=== PATIENT | female | born 1955 | race Asian ===

== ENCOUNTER 2023-06-14 03:31 | Inpatient (IN) | payer MEDICAID, OTHER ==
[~2023-06-14] VITALS: Ht 170.2 cm; Wt 83.5 kg
[2023-06-14] MEDS ORDERED: hydrALAZINE HCL 20 MG/ML VL IV ONE ×2 (04:00→05:30)
[2023-06-14 04:22] LABS: Basophils # (auto) 0 10 ^3/uL (0-0.2); Eosinophils # (auto) 0.2 10 ^3/uL (0-0.8); Eosinophils % (auto) 2.3 % (0.0-7.0); Hematocrit 22.5 % (36.0-46.0); Monocytes # (auto) 0.3 10 ^3/uL (0-1.3); Monocytes % (auto) 4.5 % (0.0-12.0); Red Blood Cells 2.55 10^6/uL (4.0-5.20)
[2023-06-14 04:23] LABS: Basophils % (auto) 0.4 % (0.0-2.0); Hemoglobin 7.2 g/dL (12.2-16.2); Lymphocytes % (auto) 12.5 % (10.0-50.0); Mean Corpuscular Hemoglobin 28.3 pg (28.0-32.0); Mean Corpuscular Hgb Conc. 32.1 g/dL (32.0-36.0); Mean Corpuscular Volume 88.3 fL (80.0-100.0); Neutrophils # (auto) 6.2 10 ^3/uL (1.6-8.6); Neutrophils % (auto) 80.3 % (37.0-80.0); Red Cell Distribution Width 17.5 % (11.8-14.3); White Blood Cell 7.7 10^3/uL (4.4-10.8)
[2023-06-14 04:30] VITALS: PULSE 86; RESP 15; O2SAT 97
[2023-06-14 04:31] LABS: INR 0.93 (0.9-1.15); Partial Thromboplastin Time 26.1 SEC (24.5-34.5); Prothrombin Time 9.8 sec (9.3-11.8)
[2023-06-14 04:34] LABS: Alanine Aminotransferase 20 U/L (7-40); Alkaline Phosphatase 124 U/L (46-116); Anion Gap 7 (5-15); Aspartate Aminotransferase 28 U/L (13-40); BUN/Creatinine Ratio 8.6 (10.0-20.0); Blood Urea Nitrogen 30 mg/dL (9-23); Calcium 8.3 mg/dL (8.7-10.4); Carbon Dioxide 17 mmol/L (20-30); Chloride 108 mmol/L (98-107); Glucose 368 mg/dL (74-106); Magnesium 2.2 mg/dL (1.6-2.6); Potassium 4.3 mmol/L (3.5-5.1); Sodium 132 mmol/L (136-145)
[2023-06-14 04:35] LABS: Albumin 3.1 g/dL (3.2-4.8); Bilirubin, Total 0.3 mg/dL (0.2-1.0)
[2023-06-14] MEDS ORDERED: LABETALOL HCL 5 MG/ML 4ML SYRINGE IV ONE (06:15)
[2023-06-14] MEDS ORDERED: LACTATED RINGER'S 2,000 ML IV ONE (06:15)
[2023-06-14] MEDS ORDERED: InsuLIN REG 1unit/0.01ml Soln (100units/ml) IV ONE (06:15)
[2023-06-14] MEDS ORDERED: ASPirin 325 MG TAB PO ONE (06:15)
[2023-06-14] MEDS ORDERED: SODIUM BICARBONATE 8.4 % INJ 50ML VIAL IV ONE (06:15)
[2023-06-14] MEDS ORDERED: MORPHINE SULFATE INJ 2 MG/ml SYRG IV PRN (06:45)
[2023-06-14] MEDS ORDERED: ONDANSETRON HCL 4 MG/2 ML VIAL IV PRN (06:45)
[2023-06-14] MEDS ORDERED: DEXTROSE (50%) 50ML SYRG IV PRN (06:45)
[2023-06-14] MEDS ORDERED: NITROGLYCERIN 0.4 MG SL TAB SL PRN (06:45)
[2023-06-14 07:40] VITALS: PULSE 76; RESP 15; O2SAT 99
[2023-06-14 08:18] LABS: Urine Bacteria MANY /hpf (None Seen); Urine Blood TRACE /uL (Negative); Urine Clarity HAZY (Clear); Urine Color Colorless (Yellow); Urine Hyaline Cast MANY /lpf (0 - 2); Urine Protein, UAD 3+ (Negative); Urine Specific Gravity 1.013 (1.001-1.035); Urine Urobilinogen Normal (Negative); Urine WBC 100 /hpf (0 - 5)
[2023-06-14] MEDS ORDERED: amLODIPine BESYLATE 5 MG TAB PO SCH (10:00)
[2023-06-14] MEDS ORDERED: METOPROLOL TARTRATE 50 MG TAB PO SCH (10:00)
[2023-06-14 10:31] LABS: Triglycerides 218 mg/dL (< 150)
[2023-06-14 10:32] LABS: LDL Cholesterol 116 mg/dL (< 100)
[2023-06-14 10:33] LABS: HDL Cholesterol 36 mg/dL (40-59)
[2023-06-14 10:34] LABS: Cholesterol 199 mg/dL (< 200)
[2023-06-14] MEDS: cloNIDine HCL 0.1 MG TAB PO SCH ×2 (11:15→23:03)
[2023-06-14] MEDS: NIFEdipine ER 30 MG TAB PO SCH (11:16)
[2023-06-14] MEDS: SODIUM BICARBONATE 50ML VIAL 50 ML in SOD CHL 0.45% 1,000 ML IV SCH (11:25)
[2023-06-14] MEDS: CARVEDILOL 12.5 MG TAB PO SCH ×2 (11:25→23:04)
[2023-06-14 11:55] LABS: Creatinine, Urine 42.24 mg/dL (30.0-125.0)
[2023-06-14 11:59] LABS: Urine Protein/Creatinine Ratio 15.96
[2023-06-14] MEDS ORDERED: SODIUM BICARBONATE 650 MG TAB PO SCH (12:00)
[2023-06-14] MEDS: ACCU-CHEK COMFORT CURVE STRIP VI SCH ×2 (12:28→17:49)
[2023-06-14] MEDS: InsuLIN REG 1unit/0.01ml Soln (100units/ml) SC SCH ×3 (12:34→23:34)
[2023-06-14] MEDS ORDERED: cefTRIAXone 1GM/50ML D5W 50 ML IV ONE (13:00)
[2023-06-14] MEDS: hydrALAZINE HCL 25 MG TAB PO SCH ×2 (14:08→23:05)
[2023-06-14] MEDS: LABETALOL HCL 5 MG/ML 4ML SYRINGE IV PRN (16:36)
[2023-06-14 19:25] VITALS: PULSE 93; RESP 18; O2SAT 96
[2023-06-14] MEDS: ACETAMINOPHEN 325 MG TAB PO PRN ×2 (20:32→23:05)
[2023-06-14] MEDS ORDERED: ATORVASTATIN 20 MG TAB PO SCH (22:00)
[2023-06-14 22:52] LABS: Hematocrit 18.3 % (36.0-46.0)
[2023-06-14] MEDS: ATORVASTATIN 20 MG TAB PO SCH (23:04)
[2023-06-14 23:11] LABS: Hemoglobin 5.9 g/dL (12.2-16.2)
[2023-06-15] VITALS (16 sets, daily range): BP systolic 125–194; BP diastolic 47–93; PULSE 66–91; RESP 16–19; TEMP 97.5–98.6; O2SAT 96–98
[2023-06-15] MEDS: ACCU-CHEK COMFORT CURVE STRIP VI SCH ×4 (01:29→18:00)
[2023-06-15] MEDS: SODIUM BICARBONATE 50ML VIAL 50 ML in SOD CHL 0.45% 1,000 ML IV SCH (01:30)
[2023-06-15 05:10] LABS: Basophils # (auto) 0 10 ^3/uL (0-0.2); Basophils % (auto) 0.4 % (0.0-2.0); Eosinophils # (auto) 0.2 10 ^3/uL (0-0.8); Hematocrit 17.2 % (36.0-46.0); Lymphocytes # (auto) 1.4 10 ^3/uL (0.4-5.4); Monocytes # (auto) 0.4 10 ^3/uL (0-1.3); Neutrophils # (auto) 3.3 10 ^3/uL (1.6-8.6)
[2023-06-15 05:11] LABS: Eosinophils % (auto) 3.5 % (0.0-7.0); Lymphocytes % (auto) 27.1 % (10.0-50.0); Mean Corpuscular Hemoglobin 28.7 pg (28.0-32.0); Mean Corpuscular Hgb Conc. 32.7 g/dL (32.0-36.0); Mean Corpuscular Volume 87.8 fL (80.0-100.0); Monocytes % (auto) 6.8 % (0.0-12.0); Neutrophils % (auto) 62.2 % (37.0-80.0); Red Blood Cells 1.95 10^6/uL (4.0-5.20); Red Cell Distribution Width 17.4 % (11.8-14.3); White Blood Cell 5.2 10^3/uL (4.4-10.8)
[2023-06-15 05:22] LABS: Alanine Aminotransferase 15 U/L (7-40); Albumin 2.3 g/dL (3.2-4.8); Alkaline Phosphatase 86 U/L (46-116); Anion Gap 6 (5-15); Aspartate Aminotransferase 17 U/L (13-40); BUN/Creatinine Ratio 8.4 (10.0-20.0); Blood Urea Nitrogen 31 mg/dL (9-23); Calcium 7.3 mg/dL (8.7-10.4); Carbon Dioxide 21 mmol/L (20-30); Chloride 110 mmol/L (98-107); Glucose 197 mg/dL (74-106); Potassium 3.6 mmol/L (3.5-5.1); Sodium 137 mmol/L (136-145)
[2023-06-15 05:23] LABS: Bilirubin, Total 0.2 mg/dL (0.2-1.0); Total Protein 4.5 g/dL (5.7-8.2)
[2023-06-15] MEDS: hydrALAZINE HCL 25 MG TAB PO SCH ×3 (05:25→21:22)
[2023-06-15 05:33] LABS: Hemoglobin 5.6 g/dL (12.2-16.2)
[2023-06-15] MEDS: InsuLIN REG 1unit/0.01ml Soln (100units/ml) SC SCH ×3 (05:33→18:45)
[2023-06-15] MEDS ORDERED: cefTRIAXone 1GM/50ML D5W 50 ML IV SCH (09:00)
[2023-06-15] MEDS: cloNIDine HCL 0.1 MG TAB PO SCH ×2 (10:00→21:22)
[2023-06-15] MEDS ORDERED: ASPirin 81 mg TAB PO SCH (10:00)
[2023-06-15] MEDS: CARVEDILOL 12.5 MG TAB PO SCH (10:00)
[2023-06-15] MEDS: NIFEdipine ER 30 MG TAB PO SCH (10:00)
[2023-06-15] MEDS ORDERED: FUROSEMIDE 40 MG/4 ML VIAL IV ONE (11:15)
[2023-06-15] MEDS: FUROSEMIDE 40 MG/4 ML VIAL IV SCH (18:41)
[2023-06-15] MEDS: ATORVASTATIN 20 MG TAB PO SCH (21:19)
[2023-06-15] MEDS ORDERED: CARVEDILOL 12.5 MG TAB PO SCH (22:00)
[2023-06-16] VITALS (8 sets, daily range): BP systolic 160–202; BP diastolic 76–91; PULSE 69–84; RESP 14–18; TEMP 97.7–98.5; O2SAT 96–99
[2023-06-16] MEDS: InsuLIN REG 1unit/0.01ml Soln (100units/ml) SC SCH ×4 (00:20→18:37)
[2023-06-16] MEDS: ACCU-CHEK COMFORT CURVE STRIP VI SCH ×4 (00:22→18:37)
[2023-06-16] MEDS: LABETALOL HCL 5 MG/ML 4ML SYRINGE IV PRN ×2 (00:36→12:28)
[2023-06-16] MEDS: hydrALAZINE HCL 25 MG TAB PO SCH ×3 (05:27→21:23)
[2023-06-16] MEDS: FUROSEMIDE 40 MG/4 ML VIAL IV SCH ×2 (05:27→18:34)
[2023-06-16 07:07] LABS: Immunoglobulin A 139 mg/dL (87-352); Immunoglobulin G, Serum 1057 mg/dL (586-1602); Immunoglobulin M 143 mg/dL (26-217)
[2023-06-16 07:59] LABS: Basophils # (auto) 0 10 ^3/uL (0-0.2); Basophils % (auto) 0.5 % (0.0-2.0); Eosinophils # (auto) 0.3 10 ^3/uL (0-0.8); Eosinophils % (auto) 5.1 % (0.0-7.0); Hematocrit 28.5 % (36.0-46.0); Hemoglobin 9.3 g/dL (12.2-16.2); Lymphocytes % (auto) 17.1 % (10.0-50.0); Mean Corpuscular Hemoglobin 27.9 pg (28.0-32.0); Mean Corpuscular Hgb Conc. 32.7 g/dL (32.0-36.0); Mean Corpuscular Volume 85.5 fL (80.0-100.0); Monocytes # (auto) 0.5 10 ^3/uL (0-1.3); Monocytes % (auto) 8.4 % (0.0-12.0); Neutrophils # (auto) 4.1 10 ^3/uL (1.6-8.6); Neutrophils % (auto) 68.9 % (37.0-80.0); Red Blood Cells 3.34 10^6/uL (4.0-5.20); Red Cell Distribution Width 16.2 % (11.8-14.3); White Blood Cell 5.9 10^3/uL (4.4-10.8)
[2023-06-16 08:19] LABS: Alanine Aminotransferase 16 U/L (7-40); Albumin 2.7 g/dL (3.2-4.8); Alkaline Phosphatase 90 U/L (46-116); Anion Gap 7 (5-15); Aspartate Aminotransferase 22 U/L (13-40); BUN/Creatinine Ratio 8.9 (10.0-20.0); Bilirubin, Total 0.5 mg/dL (0.2-1.0); Blood Urea Nitrogen 31 mg/dL (9-23); Calcium 7.9 mg/dL (8.5-10.1); Carbon Dioxide 24 mmol/L (20-30); Chloride 107 mmol/L (98-107); Glucose 149 mg/dL (74-106); Potassium 3.4 mmol/L (3.5-5.1); Sodium 138 mmol/L (136-145); Total Protein 5.2 g/dL (5.7-8.2)
[2023-06-16] MEDS: cloNIDine HCL 0.1 MG TAB PO SCH ×2 (11:14→21:23)
[2023-06-16] MEDS: FLUCONAZOLE 100 MG TAB PO SCH (11:15)
[2023-06-16] MEDS: CARVEDILOL 12.5 MG TAB PO SCH ×2 (11:15→21:22)
[2023-06-16] MEDS: AMPICILLIN INJ 1 GM in SODIUM CHL 0.9% 100 ML IV SCH ×2 (13:40→18:34)
[2023-06-16] MEDS: ATORVASTATIN 20 MG TAB PO SCH (21:21)
[2023-06-17] MEDS: InsuLIN REG 1unit/0.01ml Soln (100units/ml) SC SCH ×3 (00:07→12:01)
[2023-06-17] MEDS: LABETALOL HCL 5 MG/ML 4ML SYRINGE IV PRN (00:08)
[2023-06-17] MEDS: AMPICILLIN INJ 1 GM in SODIUM CHL 0.9% 100 ML IV SCH ×3 (00:08→11:54)
[2023-06-17] MEDS: ACCU-CHEK COMFORT CURVE STRIP VI SCH ×3 (00:10→11:18)
[2023-06-17 05:00] VITALS: BP 172/70; PULSE 67; RESP 17; TEMP 98; O2SAT 98
[2023-06-17] MEDS: hydrALAZINE HCL 25 MG TAB PO SCH ×2 (05:17→14:00)
[2023-06-17] MEDS: FUROSEMIDE 40 MG/4 ML VIAL IV SCH (05:18)
[2023-06-17 06:55] LABS: Anion Gap 8 (5-15); Carbon Dioxide 24 mmol/L (20-30); Chloride 106 mmol/L (98-107); Potassium 3.3 mmol/L (3.5-5.1); Sodium 138 mmol/L (136-145)
[2023-06-17 06:56] LABS: Calcium 8.2 mg/dL (8.5-10.1)
[2023-06-17 07:00] LABS: Glucose 141 mg/dL (74-106)
[2023-06-17 07:01] LABS: BUN/Creatinine Ratio 8.2 (10.0-20.0); Blood Urea Nitrogen 30 mg/dL (9-23)
[2023-06-17 07:14] LABS: Basophils # (auto) 0 10 ^3/uL (0-0.2); Basophils % (auto) 0.6 % (0.0-2.0); Eosinophils # (auto) 0.4 10 ^3/uL (0-0.8); Eosinophils % (auto) 6.3 % (0.0-7.0); Hematocrit 29.1 % (36.0-46.0); Hemoglobin 9.5 g/dL (12.2-16.2); Lymphocytes # (auto) 1.2 10 ^3/uL (0.4-5.4); Lymphocytes % (auto) 20.5 % (10.0-50.0); Mean Corpuscular Hemoglobin 28.9 pg (28.0-32.0); Mean Corpuscular Hgb Conc. 32.7 g/dL (32.0-36.0); Mean Corpuscular Volume 88.3 fL (80.0-100.0); Monocytes # (auto) 0.5 10 ^3/uL (0-1.3); Monocytes % (auto) 9.1 % (0.0-12.0); Neutrophils # (auto) 3.7 10 ^3/uL (1.6-8.6); Neutrophils % (auto) 63.5 % (37.0-80.0); Nucleated Red Blood Cells % 0.2 %; Red Cell Distribution Width 16.1 % (11.8-14.3); White Blood Cell 5.8 10^3/uL (4.4-10.8)
[2023-06-17 08:00] VITALS: BP 209/92; PULSE 63; PULSE 67; PULSE 78; RESP 16; RESP 18; TEMP 97.8; O2SAT 98; O2SAT 99
[2023-06-17] MEDS ORDERED: POTASSIUM EFFERVESENT TAB 25 MEQ PO ONE ×2 (08:45→10:00)
[2023-06-17] MEDS: FLUCONAZOLE 100 MG TAB PO SCH (09:09)
[2023-06-17] MEDS: cloNIDine HCL 0.1 MG TAB PO SCH (09:09)
[2023-06-17] MEDS: CARVEDILOL 12.5 MG TAB PO SCH (09:11)
[2023-06-17] MEDS ORDERED: NIFEdipine ER 30 MG TAB PO SCH (10:00)
[2023-06-17] MEDS ORDERED: FUROSEMIDE 40 MG TAB PO SCH (10:00)
[2023-06-17 12:00] VITALS: PULSE 69; RESP 18; TEMP 97.9; O2SAT 97
[2023-06-17] MEDS ORDERED: FLUC150T38 PO (12:14)
[2023-06-17] MEDS ORDERED: AMPI500C9 PO (12:14)
== END 2023-06-17 14:40 | disposition home or self-care (01) | DRG 199 ==
LOC: EDBD 03:31 → ER 03:31 → TELE 06:42 → TELE-EAST 22:20
PROVIDERS: ADMIT Nurse Practitioner; ATTEND Family Medicine
PROC: 30233N1 Transfusion of Nonautologous Red Blood Cells into Peripheral Vein, Percutaneous Approach (ICD-10-PCS; principal; 2023-06-15)
PROC: 05HC33Z Insertion of Infusion Device into Left Basilic Vein, Percutaneous Approach (ICD-10-PCS; 2023-06-15)
PROC: B54NZZA Ultrasonography of Left Upper Extremity Veins, Guidance (ICD-10-PCS; 2023-06-15)
DX: I16.0 Hypertensive urgency (principal); N17.0 Acute kidney failure with tubular necrosis; I21.A1 Myocardial infarction type 2; I50.33 Acute on chronic diastolic (congestive) heart failure; D63.1 Anemia in chronic kidney disease; E87.20 Acidosis, unspecified; E11.65 Type 2 diabetes mellitus with hyperglycemia; E86.0 Dehydration; E66.9 Obesity, unspecified; E78.5 Hyperlipidemia, unspecified; N18.4 Chronic kidney disease, stage 4 (severe); N39.0 Urinary tract infection, site not specified; B95.1 Streptococcus, group B, as the cause of diseases classified elsewhere; I13.0 Hypertensive heart and chronic kidney disease with heart failure and stage 1 through stage 4 chronic kidney disease, or unspecified chronic kidney disease; E11.22 Type 2 diabetes mellitus with diabetic chronic kidney disease; Z86.73 Personal history of transient ischemic attack (TIA), and cerebral infarction without residual deficits; Z86.74 Personal history of sudden cardiac arrest; Z85.43 Personal history of malignant neoplasm of ovary; Z85.3 Personal history of malignant neoplasm of breast; Z68.28 Body mass index [BMI] 28.0-28.9, adult; Z79.4 Long term (current) use of insulin
CPT/HCPCS: 36415; 70450; 71045; 76775; 80048; 80053; 80061; 81001; 82010; 82306; 82570; 82784; 82962; 83010; 83036; 83735; 83880; 83970; 84100; 84156; 84300; 84443; 84484; 85014; 85018; 85025; 85045; 85610; 85730; 86334; 86850; 86900; 86901; 86920; 87040; 87086; 87340; 93005; 93306; 96374; 96375; 99291; G0378; J0696; J1815; J3490

== ENCOUNTER 2023-07-27 23:00 | Inpatient (IN) | payer MEDICAID, OTHER ==
[~2023-07-27] VITALS: Ht 170.2 cm; Wt 83.2 kg
[~2023-07-27 23:00] MED LIST: AMPI500C9 PO; FLUC150T38 PO
[2023-07-27] MEDS ORDERED: amLODIPine BESYLATE 5 MG TAB PO ONE (23:30)
[2023-07-27] MEDS ORDERED: cloNIDine HCL 0.1 MG TAB PO ONE (23:30)
[2023-07-27 23:38] VITALS: PULSE 97; RESP 15; O2SAT 97
[2023-07-28 00:14] LABS: Basophils # (auto) 0.1 10 ^3/uL (0-0.2); Basophils % (auto) 0.8 % (0.0-2.0); Eosinophils # (auto) 0.2 10 ^3/uL (0-0.8); Eosinophils % (auto) 2.8 % (0.0-7.0); Hematocrit 29.6 % (36.0-46.0); Hemoglobin 9.6 g/dL (12.2-16.2); Lymphocytes # (auto) 0.8 10 ^3/uL (0.4-5.4); Lymphocytes % (auto) 11.3 % (10.0-50.0); Mean Corpuscular Hemoglobin 28.9 pg (28.0-32.0); Mean Corpuscular Hgb Conc. 32.4 g/dL (32.0-36.0); Mean Corpuscular Volume 89.3 fL (80.0-100.0); Monocytes # (auto) 0.5 10 ^3/uL (0-1.3); Monocytes % (auto) 6.3 % (0.0-12.0); Neutrophils # (auto) 5.8 10 ^3/uL (1.6-8.6); Neutrophils % (auto) 78.8 % (37.0-80.0); Red Blood Cells 3.31 10^6/uL (4.0-5.20); Red Cell Distribution Width 17.4 % (11.8-14.3); White Blood Cell 7.4 10^3/uL (4.4-10.8)
[2023-07-28 00:33] LABS: Albumin 2.9 g/dL (3.2-4.8); Alkaline Phosphatase 108 U/L (46-116); Anion Gap 7 (5-15); Aspartate Aminotransferase 22 U/L (13-40); Bilirubin, Total 0.3 mg/dL (0.2-1.0); Blood Urea Nitrogen 25 mg/dL (9-23); Carbon Dioxide 18 mmol/L (20-30); Chloride 110 mmol/L (98-107); Glucose 161 mg/dL (74-106); Potassium 4.1 mmol/L (3.5-5.1); Sodium 135 mmol/L (136-145)
[2023-07-28 00:34] LABS: Total Protein 5.9 g/dL (5.7-8.2)
[2023-07-28 00:36] LABS: Alanine Aminotransferase < 9 U/L (7-40)
[2023-07-28] MEDS ORDERED: hydrALAZINE HCL 20 MG/ML VL IV ONE (01:30)
[2023-07-28] MEDS ORDERED: FUROSEMIDE 40 MG/4 ML VIAL IV ONE (03:30)
[2023-07-28 04:50] LABS: Urine Amorphous Crystal FEW /hpf (None Seen); Urine Bacteria FEW /hpf (None Seen); Urine Blood Negative /uL (Negative); Urine Clarity HAZY (Clear); Urine Color Colorless (Yellow); Urine Hyaline Cast FEW /lpf (0 - 2); Urine Protein, UAD 3+ (Negative); Urine Specific Gravity 1.012 (1.001-1.035); Urine Urobilinogen Normal (Negative); Urine WBC 21 /hpf (0 - 5)
[2023-07-28] MEDS ORDERED: NITROGLYCERIN 50MG/250ML 250 ML IV ONE (05:30)
[2023-07-28] MEDS ORDERED: MORPHINE SULFATE INJ 2 MG/ml SYRG IV PRN (05:45)
[2023-07-28] MEDS ORDERED: DEXTROSE (50%) 50ML SYRG IV PRN (05:45)
[2023-07-28] MEDS ORDERED: ACETAMINOPHEN 325 MG TAB PO PRN (05:45)
[2023-07-28] MEDS ORDERED: ONDANSETRON HCL 4 MG/2 ML VIAL IV PRN (05:45)
[2023-07-28] MEDS ORDERED: NITROGLYCERIN 0.4 MG SL TAB SL PRN (05:45)
[2023-07-28] MEDS: ACCU-CHEK COMFORT CURVE STRIP VI SCH ×4 (06:36→23:58)
[2023-07-28] MEDS: hydrALAZINE HCL 25 MG TAB PO SCH ×3 (06:36→21:55)
[2023-07-28] MEDS: InsuLIN REG 1unit/0.01ml Soln (100units/ml) SC SCH ×4 (06:41→23:58)
[2023-07-28 07:30] VITALS: PULSE 78; RESP 17; O2SAT 97
[2023-07-28] MEDS ORDERED: FUROSEMIDE 20 MG/2 ML VIAL IV ONE (08:00)
[2023-07-28 08:52] LABS: Anion Gap 12 (5-15); Calcium 8.3 mg/dL (8.5-10.1); Carbon Dioxide 17 mmol/L (20-30); Chloride 111 mmol/L (98-107); Potassium 4.1 mmol/L (3.5-5.1); Sodium 140 mmol/L (136-145)
[2023-07-28 08:58] LABS: BUN/Creatinine Ratio 8.8 (10.0-20.0); Glucose 147 mg/dL (74-106)
[2023-07-28 09:00] LABS: Blood Urea Nitrogen 36 mg/dL (9-23)
[2023-07-28] MEDS: NIFEdipine ER 30 MG TAB PO SCH (09:47)
[2023-07-28] MEDS: cloNIDine HCL 0.1 MG TAB PO SCH ×2 (09:48→21:55)
[2023-07-28] MEDS: AZITHROMYCIN 500MG/ 250ML 250 ML IV SCH (09:49)
[2023-07-28] MEDS: CARVEDILOL 12.5 MG TAB PO SCH ×2 (09:49→21:55)
[2023-07-28] MEDS ORDERED: ASPirin 81 mg TAB PO SCH (10:00)
[2023-07-28] MEDS ORDERED: cefTRIAXone 1GM/50ML D5W 50 ML IV ONE (13:45)
[2023-07-28] MEDS ORDERED: NITROGLYCERIN 50MG/250ML 250 ML IV SCH (16:30)
[2023-07-28] MEDS: NITROGLYCERIN 50MG/250ML 250 ML IV SCH (16:45)
[2023-07-28] MEDS: FUROSEMIDE 20 MG/2 ML VIAL IV SCH (17:06)
[2023-07-28 19:25] VITALS: PULSE 76; RESP 20; O2SAT 94
[2023-07-28] MEDS: SODIUM BICARBONATE 650 MG TAB PO SCH (21:55)
[2023-07-28] MEDS: ATORVASTATIN 20 MG TAB PO SCH (21:55)
[2023-07-29 05:34] LABS: Basophils # (auto) 0 10 ^3/uL (0-0.2); Eosinophils # (auto) 0.2 10 ^3/uL (0-0.8); Hemoglobin 7.5 g/dL (12.2-16.2); Monocytes # (auto) 0.4 10 ^3/uL (0-1.3); Nucleated Red Blood Cells % 0.1 %; White Blood Cell 4.6 10^3/uL (4.4-10.8)
[2023-07-29 05:38] LABS: Basophils % (auto) 0.4 % (0.0-2.0); Eosinophils % (auto) 4.2 % (0.0-7.0); Hematocrit 22.4 % (36.0-46.0); Lymphocytes % (auto) 20.9 % (10.0-50.0); Mean Corpuscular Hemoglobin 28.9 pg (28.0-32.0); Mean Corpuscular Hgb Conc. 33.5 g/dL (32.0-36.0); Monocytes % (auto) 7.9 % (0.0-12.0); Neutrophils % (auto) 66.6 % (37.0-80.0); Red Cell Distribution Width 16.9 % (11.8-14.3)
[2023-07-29 05:51] LABS: Albumin 2.4 g/dL (3.2-4.8); Alkaline Phosphatase 88 U/L (46-116); Anion Gap 7 (5-15); Aspartate Aminotransferase 17 U/L (13-40); BUN/Creatinine Ratio 7.9 (10.0-20.0); Blood Urea Nitrogen 38 mg/dL (9-23); Calcium 7.6 mg/dL (8.7-10.4); Carbon Dioxide 22 mmol/L (20-30); Chloride 109 mmol/L (98-107); Glucose 138 mg/dL (74-106); Magnesium 2.2 mg/dL (1.6-2.6); Potassium 3.9 mmol/L (3.5-5.1); Sodium 138 mmol/L (136-145)
[2023-07-29 05:52] LABS: Bilirubin, Total 0.3 mg/dL (0.2-1.0); Phosphorus 5.2 mg/dL (2.4-5.1); Total Protein 4.8 g/dL (5.7-8.2)
[2023-07-29] MEDS: InsuLIN REG 1unit/0.01ml Soln (100units/ml) SC SCH ×3 (06:00→18:00)
[2023-07-29 06:12] LABS: Alanine Aminotransferase < 9 U/L (7-40)
[2023-07-29] MEDS: ACCU-CHEK COMFORT CURVE STRIP VI SCH ×3 (06:14→18:31)
[2023-07-29] MEDS: FUROSEMIDE 20 MG/2 ML VIAL IV SCH ×2 (06:17→18:32)
[2023-07-29] MEDS: hydrALAZINE HCL 25 MG TAB PO SCH ×3 (06:18→21:52)
[2023-07-29] MEDS: SODIUM BICARBONATE 650 MG TAB PO SCH ×3 (06:18→21:50)
[2023-07-29] MEDS: NITROGLYCERIN 50MG/250ML 250 ML IV SCH (07:33)
[2023-07-29 08:00] VITALS: PULSE 77; RESP 16; O2SAT 90
[2023-07-29] MEDS: cefTRIAXone 1GM/50ML D5W 50 ML IV SCH (11:21)
[2023-07-29] MEDS: AZITHROMYCIN 500MG/ 250ML 250 ML IV SCH (11:25)
[2023-07-29] MEDS: cloNIDine HCL 0.1 MG TAB PO SCH ×2 (12:19→21:54)
[2023-07-29] MEDS: CARVEDILOL 12.5 MG TAB PO SCH ×2 (12:20→21:53)
[2023-07-29] MEDS: NIFEdipine ER 30 MG TAB PO SCH (12:21)
[2023-07-29] MEDS ORDERED: cloNIDine HCL 0.1 MG TAB PO PRN (14:15)
[2023-07-29 16:05] VITALS: BP 147/65; PULSE 76; RESP 22; TEMP 97.4; O2SAT 98
[2023-07-29 16:50] LABS: Basophils # (auto) 0 10 ^3/uL (0-0.2); Basophils % (auto) 0.5 % (0.0-2.0); Eosinophils # (auto) 0.2 10 ^3/uL (0-0.8); Hematocrit 25.2 % (36.0-46.0); Hemoglobin 8.2 g/dL (12.2-16.2); Lymphocytes % (auto) 20.2 % (10.0-50.0); Mean Corpuscular Hemoglobin 28.6 pg (28.0-32.0); Mean Corpuscular Hgb Conc. 32.7 g/dL (32.0-36.0); Mean Corpuscular Volume 87.4 fL (80.0-100.0); Monocytes # (auto) 0.4 10 ^3/uL (0-1.3); Monocytes % (auto) 7.9 % (0.0-12.0); Neutrophils # (auto) 3.1 10 ^3/uL (1.6-8.6); Neutrophils % (auto) 66.4 % (37.0-80.0); Red Blood Cells 2.88 10^6/uL (4.0-5.20); Red Cell Distribution Width 16.8 % (11.8-14.3); White Blood Cell 4.7 10^3/uL (4.4-10.8)
[2023-07-29 17:00] VITALS: BP 147/65; PULSE 76; RESP 22; TEMP 97.4; O2SAT 98
[2023-07-29 20:00] VITALS: PULSE 80; RESP 20; O2SAT 2
[2023-07-29 21:48] VITALS: BP 167/64; PULSE 83; RESP 20; TEMP 98.2; O2SAT 97
[2023-07-29] MEDS: ATORVASTATIN 20 MG TAB PO SCH (21:53)
[2023-07-30] MEDS: ACCU-CHEK COMFORT CURVE STRIP VI SCH ×2 (00:23→06:00)
[2023-07-30] MEDS: InsuLIN REG 1unit/0.01ml Soln (100units/ml) SC SCH ×2 (00:23→06:20)
[2023-07-30 05:00] VITALS: BP 150/66; PULSE 83; RESP 18; TEMP 98.1; O2SAT 92
[2023-07-30 06:09] LABS: Anion Gap 11 (5-15); Calcium 7.8 mg/dL (8.7-10.4); Carbon Dioxide 21 mmol/L (20-30); Chloride 106 mmol/L (98-107); Potassium 3.9 mmol/L (3.5-5.1); Sodium 138 mmol/L (136-145)
[2023-07-30 06:15] LABS: Blood Urea Nitrogen 40 mg/dL (9-23); Glucose 122 mg/dL (74-106)
[2023-07-30] MEDS: SODIUM BICARBONATE 650 MG TAB PO SCH (06:20)
[2023-07-30] MEDS: hydrALAZINE HCL 25 MG TAB PO SCH (06:21)
[2023-07-30] MEDS: FUROSEMIDE 20 MG/2 ML VIAL IV SCH (06:22)
[2023-07-30 06:56] LABS: Basophils # (auto) 0 10 ^3/uL (0-0.2); Basophils % (auto) 0.4 % (0.0-2.0); Eosinophils # (auto) 0.3 10 ^3/uL (0-0.8); Eosinophils % (auto) 4.8 % (0.0-7.0); Hematocrit 25.3 % (36.0-46.0); Hemoglobin 8.6 g/dL (12.2-16.2); Lymphocytes # (auto) 1.2 10 ^3/uL (0.4-5.4); Lymphocytes % (auto) 21.3 % (10.0-50.0); Mean Corpuscular Hemoglobin 29.4 pg (28.0-32.0); Mean Corpuscular Volume 86.3 fL (80.0-100.0); Monocytes # (auto) 0.4 10 ^3/uL (0-1.3); Monocytes % (auto) 7.4 % (0.0-12.0); Neutrophils # (auto) 3.8 10 ^3/uL (1.6-8.6); Neutrophils % (auto) 66.1 % (37.0-80.0); Red Blood Cells 2.93 10^6/uL (4.0-5.20); Red Cell Distribution Width 16.7 % (11.8-14.3); White Blood Cell 5.7 10^3/uL (4.4-10.8)
[2023-07-30 08:00] VITALS: PULSE 79
[2023-07-30] MEDS: cefTRIAXone 1GM/50ML D5W 50 ML IV SCH (08:33)
[2023-07-30] MEDS: NIFEdipine ER 30 MG TAB PO SCH (08:34)
[2023-07-30] MEDS: cloNIDine HCL 0.1 MG TAB PO SCH (08:34)
[2023-07-30] MEDS: CARVEDILOL 12.5 MG TAB PO SCH (08:34)
[2023-07-30 08:43] VITALS: BP 153/61; PULSE 83; RESP 20; TEMP 98; O2SAT 92
[2023-07-30] MEDS: AZITHROMYCIN 500MG/ 250ML 250 ML IV SCH (10:52)
== END 2023-07-30 11:36 | disposition home or self-care (01) | DRG 280 ==
LOC: EDUNIT# 23:00 → EDBD 23:00 → ER 23:00 → TELE 07-28 05:44 → TELE-CENTR 07-29 16:01
PROVIDERS: ADMIT Nurse Practitioner; ATTEND Family Medicine
DX: I16.1 Hypertensive emergency (principal); I21.A1 Myocardial infarction type 2; I50.33 Acute on chronic diastolic (congestive) heart failure; N18.6 End stage renal disease; N17.9 Acute kidney failure, unspecified; N18.4 Chronic kidney disease, stage 4 (severe); N39.0 Urinary tract infection, site not specified; D64.9 Anemia, unspecified; E11.22 Type 2 diabetes mellitus with diabetic chronic kidney disease; E66.9 Obesity, unspecified; E78.5 Hyperlipidemia, unspecified; I13.2 Hypertensive heart and chronic kidney disease with heart failure and with stage 5 chronic kidney disease, or end stage renal disease; Z85.3 Personal history of malignant neoplasm of breast; Z68.28 Body mass index [BMI] 28.0-28.9, adult; I25.2 Old myocardial infarction; Z85.43 Personal history of malignant neoplasm of ovary; Z86.73 Personal history of transient ischemic attack (TIA), and cerebral infarction without residual deficits; Z99.2 Dependence on renal dialysis
CPT/HCPCS: 36415; 71045; 80048; 80053; 81001; 82306; 82962; 83735; 83880; 83970; 84100; 84484; 85025; 86850; 86900; 86901; 87086; 93005; 93975; 99291; G0378; J1815